=== PATIENT | male | born 1945 ===

== ENCOUNTER 2016-08-21 15:58 | Emergency (ER) | payer MEDICARE, MEDICAID ==
[2016-08-21 16:14] VITALS: BMI 23.0
[2016-08-21 16:18] VITALS: PULSE 71
--- NOTE | 2016-08-21 17:04 | ED PDOC ---
Arrival/HPI - General Historian: Patient - History of Present Illness Time/Duration: Other (3 months) Quality: Aching Context: Home - General Chief Complaint: Back Pain Time Seen by Provider: 08/21/16 17:00 - History of Present Illness Narrative History of Present Illness (Text): 08/21/16 17:01 This 70 yo male presents to this ED c/o right side neck pain x 3 months. Patient admits intermittent crepitus. Denies trauma, sob, abnormal gait, dizziness, vertigo, sob, cp, abdominal pain, pugh, or rash. (Rogelio Green) Past Medical History - Provider Review Nursing Documentation Reviewed: Yes - Cardiac Hx Cardiac Disorders: Yes Hx Hypertension: Yes - Pulmonary Hx Respiratory Disorders: No - Neurological Hx Neurological Disorder: No - HEENT Hx HEENT Disorder: No - Renal Hx Renal Disorder: No - Endocrine/Metabolic Hx Endocrine Disorders: No - Hematological/Oncological Hx Blood Disorders: Yes Hx Anemia: Yes Hx Blood Transfusions: Yes Hx Blood Transfusion Reaction: No Hx Cirrhosis: Yes Hx Hepatitis C: Yes - Integumentary Hx Dermatological Disorder: No - Musculoskeletal/Rheumatological Hx Musculoskeletal Disorders: Yes Hx Falls: Yes (fell yesterday in kitchen) Hx Unsteady Gait: Yes (weakness) - Gastrointestinal Hx Gastrointestinal Disorders: Yes (Peptic Ulcer Disease) Hx Liver Failure: Yes (cirrhosis) - Genitourinary/Gynecological Hx Genitourinary Disorders: No - Psychiatric Hx Psychophysiologic Disorder: No Hx Substance Use: No Other/Comment: etoh stopped drinking 04/2015 - Anesthesia Hx Anesthesia: Yes Hx Anesthesia Reactions: No Hx Malignant Hyperthermia: No Family/Social History - Physician Review Nursing Documentation Reviewed: Yes Family/Social History: No Known Family HX Smoking Status: Never Smoked Hx Alcohol Use: No (stopped drinking 04/2015) Hx Substance Use: No Allergies/Home Meds Allergies/Adverse Reactions: Allergies No Known Allergies Allergy (Verified 08/21/16 16:14) Review of Systems - Review of Systems Constitutional: Normal. absent: Fatigue, Weight Change Eyes: Normal ENT: Normal. absent: Sore Throat, Rhinorrhea Respiratory: Normal. absent: SOB, Cough Cardiovascular: Normal Gastrointestinal: Normal. absent: Abdominal Pain, Nausea, Vomiting Genitourinary Male: Normal Musculoskeletal: Neck Pain Skin: Normal Neurological: Normal. absent: Headache, Dizziness, Focal Weakness, Gait Changes , Speech Changes, Facial Droop, Disequilibrium, Seizure Endocrine: Normal Hemo/Lymphatic: Normal Psychiatric: Normal Physical Exam Temperature: Afebrile Blood Pressure: Normal Pulse: Regular Respiratory Rate: Normal Appearance: Positive for: Well-Appearing, Non-Toxic, Comfortable Pain Distress: None Mental Status: Positive for: Alert and Oriented X 3 - Systems Exam Head: Present: Atraumatic, Normocephalic Pupils: Present: PERRL Extroacular Muscles: Present: EOMI Conjunctiva: Present: Normal Mouth: Present: Moist Mucous Membranes Neck: Present: Normal Range of Motion Respiratory/Chest: Present: Clear to Auscultation, Good Air Exchange. No: Respiratory Distress, Accessory Muscle Use Cardiovascular: Present: Regular Rate and Rhythm, Normal S1, S2. No: Murmurs Abdomen: Present: Normal Bowel Sounds. No: Tenderness, Distention, Peritoneal Signs Back: Present: Normal Inspection. No: CVA Tenderness Upper Extremity: Present: Normal Inspection, Normal ROM, NORMAL PULSES, Neurovascularly Intact, Capillary Refill < 2s. No: Cyanosis, Edema Lower Extremity: Present: Normal Inspection, NORMAL PULSES, Normal ROM, Capillary Refill < 2 s. No: Edema Neurological: Present: GCS=15, CN II-XII Intact, Speech Normal Skin: Present: Warm, Dry, Normal Color. No: Rashes Psychiatric: Present: Alert, Oriented x 3 Medical Decision Making Re-evaluation Time: 18:03 Reassessment Condition: Re-examined, Improved ED Course and Treatment: 08/21/16 18:03 Re-evaluation. Patient feels better. Discussed results and plan with patient who expresses understanding. All questions answered and there is agreement with the plan to discharge home with instructions. Patient stable for discharge. Return if symptoms persist or worsen. Patient is aware of lung nodule,and to follow up pmd (Rogelio Green) - RAD Interpretation Narrative RAD Interpretations (Text): 08/21/16 18:02 Accession No. : [id number] Patient Name / ID : RUFINA SNYDER / [id number] Exam Date : 08/21/2016 17:15:33 ( Approved ) Study Comment : Sex / Age : M / 70Y Creator : Christiana Stewart MD Dictator : Christiana Stewart MD Vehicle Technician : Grinder Hardboard : Christiana Stewart MD Approver2 : Report Date : 08/21/2016 17:45:14 My Comment : CT cervical spine without IV contrast Indication: Pain Comparison: None available Technique: Axial computed tomography images were obtained of the cervical spine without the use of intravenous contrast. Coronal and sagittal reformatted images were created and reviewed. This CT exam was performed using 1 or more of the falling dose reduction techniques: Automated exposure control, adjustment of the MAA and/or kV according to patient size, and/or use of iterative reconstruction technique. Radiation dose: Total exam DLP = 481.28 mGy-cm. Findings: There is decreased mineralization of the bones, most likely representing osteoporosis. Several rounded lytic lesions are noted scattered throughout the cervical spine including C6 spinous process of unclear significance ; possibly related to degenerative state in osseous demineralization. Underlying metabolic bone disease or infiltrative lesions can also have this appearance. This decreases the sensitivity for detection of acute fracture lines, and if this is of clinical concern, MRI should be considered. Straightening of the normal cervical lordosis may be related to muscle spasm or positioning. There is no evidence of acute fracture. Approximately 2 mm retrolisthesis of C5 on C6. Multilevel degenerative changes including intervertebral disc space narrowing. Small osteophyte formation. Facet hypertrophy. The prevertebral soft tissues and spinolaminar lines appear intact. The lateral masses are preserved. The dens tip is intact. There is proper alignment of the lateral masses of C1 with the C2 vertebral body. Included portions of the thyroid gland appear unremarkable. Included portions of lung apices demonstrates 3 mm right upper lobe nodular density. Right apical atelectasis or scarring. Impression: Straightening of the normal cervical lordosis may be related to muscle spasm or positioning. No evidence of acute fracture. There is decreased mineralization of the bones, most likely representing osteoporosis. Several rounded lytic lesions are noted scattered throughout the cervical spine including C6 spinous process of unclear significance ; possibly related to degenerative state and osseous demineralization. Underlying metabolic bone disease or infiltrative lesions can also have this appearance. Recommend clinical correlation and further evaluation as indicated. Also, please note demineralized appearance decreases the sensitivity for detection of acute fracture lines, and if this is of clinical concern, MRI should be considered. Included portions of lung apices demonstrates 3 mm right upper lobe nodular density. Right apical atelectasis or scarring. (Rogelio Green) Radiology Orders: 08/21/16 17:00 CERVICAL SPINE W/O CONTRAST [CT] Stat - Medication Orders Current Medication Orders: Discontinued Medications Diazepam (Valium) 5 mg PO ONCE ONE PRN Reason: Protocol Stop: 08/21/16 17:40 Last Admin: 08/21/16 17:53 Dose: 5 mg Disposition/Present on Arrival - Present on Arrival Any Indicators Present on Arrival: No History of DVT/PE: No History of Uncontrolled Diabetes: No Urinary Catheter: No History of Decub. Ulcer: No History Surgical Site Infection Following: None - Disposition Have Diagnosis and Disposition been Completed?: Yes Disposition Time: 18:04 Patient Plan: Discharge - Disposition Diagnosis: Cervical pain (neck), Lung nodule seen on imaging study Disposition: HOME/ ROUTINE Condition: GOOD Discharge Instructions (ExitCare): Pulmonary Nodules (ED) Additional Instructions: Call private doctor tomorrow or in 2 days for revaluation. Take medication as instructed. Return to emergency if symptoms worsen. Prescriptions: diaZEpam [Valium] 5 mg PO DAILY #7 tab Referrals: Gulshan Sierra MD [Primary Care Provider] - Follow up with primary Addendum Addendum: 08/26/16 09:20 Unsure what is meant by "crepitus" but CT performed without any mention of air in report. Otherwise, agree with documentation. (Cyril Corea)
--- NOTE | 2016-08-21 17:46 | CT ---
CT cervical spine without IV contrast Indication: Pain Comparison: None available Technique: Axial computed tomography images were obtained of the cervical spine without the use of intravenous contrast. Coronal and sagittal reformatted images were created and reviewed. This CT exam was performed using 1 or more of the falling dose reduction techniques: Automated exposure control, adjustment of the MAA and/or kV according to patient size, and/or use of iterative reconstruction technique. Radiation dose: Total exam DLP = 481.28 mGy-cm. Findings: There is decreased mineralization of the bones, most likely representing osteoporosis. Several rounded lytic lesions are noted scattered throughout the cervical spine including C6 spinous process of unclear significance ; possibly related to degenerative state in osseous demineralization. Underlying metabolic bone disease or infiltrative lesions can also have this appearance. This decreases the sensitivity for detection of acute fracture lines, and if this is of clinical concern, MRI should be considered. Straightening of the normal cervical lordosis may be related to muscle spasm or positioning. There is no evidence of acute fracture. Approximately 2 mm retrolisthesis of C5 on C6. Multilevel degenerative changes including intervertebral disc space narrowing. Small osteophyte formation. Facet hypertrophy. The prevertebral soft tissues and spinolaminar lines appear intact. The lateral masses are preserved. The dens tip is intact. There is proper alignment of the lateral masses of C1 with the C2 vertebral body. Included portions of the thyroid gland appear unremarkable. Included portions of lung apices demonstrates 3 mm right upper lobe nodular density. Right apical atelectasis or scarring. Impression: Straightening of the normal cervical lordosis may be related to muscle spasm or positioning. No evidence of acute fracture. There is decreased mineralization of the bones, most likely representing osteoporosis. Several rounded lytic lesions are noted scattered throughout the cervical spine including C6 spinous process of unclear significance ; possibly related to degenerative state and osseous demineralization. Underlying metabolic bone disease or infiltrative lesions can also have this appearance. Recommend clinical correlation and further evaluation as indicated. Also, please note demineralized appearance decreases the sensitivity for detection of acute fracture lines, and if this is of clinical concern, MRI should be considered. Included portions of lung apices demonstrates 3 mm right upper lobe nodular density. Right apical atelectasis or scarring.
[2016-08-21 18:28] VITALS: BP 109/71; RESP 20; TEMP 97.6; O2SAT 96
== END 2016-08-21 18:29 | disposition home or self-care (01) ==
LOC: ED 15:58
DX: M54.2 Cervicalgia (principal); R91.1 Solitary pulmonary nodule; I10 Essential (primary) hypertension

== ENCOUNTER 2017-01-11 20:49 | Inpatient (IN) | payer MEDICARE, MEDICAID ==
[2017-01-11 20:50] VITALS: BMI 23.0
--- NOTE | 2017-01-11 21:11 | ED PDOC ---
Arrival/HPI - General Chief Complaint: GI Problem Time Seen by Provider: 01/11/17 20:52 Historian: Patient - History of Present Illness Narrative History of Present Illness (Text): 01/11/17 21:10 Ras Wahl is a 71 year old male, whose past medical history include liver cirrhosis, hypertension, peptic ulcer disease, and alcohol abuse, who presents to the Emergency department accompanied by family complaining of hematemesis. Daughter states patient had 1 episodes of hematemesis at home tonight with associated burning abdominal discomfort. Patient also complaining of dry mouth. Patient denies any fever, chills, chest pain, shortness of breath, diarrhea, urinary symptoms, back pain, neck pain, headache, dizziness, or any other complaints. PMD: Dr. Sierra GI: Dr. Bryant Key Time/Duration: Other (today) Symptom Onset: Gradual Symptom Course: Unchanged Activities at Onset: Light Context: Home Past Medical History - Provider Review Nursing Documentation Reviewed: Yes - Infectious Disease Hx of Infectious Diseases: None - Cardiac Hx Cardiac Disorders: Yes Hx Hypertension: Yes - Pulmonary Hx Respiratory Disorders: No - Neurological Hx Neurological Disorder: No - HEENT Hx HEENT Disorder: No - Renal Hx Renal Disorder: No - Endocrine/Metabolic Hx Endocrine Disorders: No - Hematological/Oncological Hx Blood Disorders: Yes Hx Anemia: Yes Hx Blood Transfusions: Yes Hx Blood Transfusion Reaction: No Hx Cirrhosis: Yes Hx Hepatitis C: Yes - Integumentary Hx Dermatological Disorder: No - Musculoskeletal/Rheumatological Hx Musculoskeletal Disorders: Yes Hx Falls: Yes (fell yesterday in kitchen) Hx Unsteady Gait: Yes (weakness) - Gastrointestinal Hx Gastrointestinal Disorders: Yes (Peptic Ulcer Disease) Hx Liver Failure: Yes (cirrhosis) - Genitourinary/Gynecological Hx Genitourinary Disorders: No - Psychiatric Hx Psychophysiologic Disorder: No Hx Substance Use: No Other/Comment: etoh stopped drinking 04/2015 - Anesthesia Hx Anesthesia: Yes Hx Anesthesia Reactions: No Hx Malignant Hyperthermia: No Family/Social History - Physician Review Nursing Documentation Reviewed: Yes Family/Social History: Unknown Family HX Smoking Status: Never Smoked Hx Alcohol Use: No (stopped drinking 04/2015) Hx Substance Use: No Allergies/Home Meds Allergies/Adverse Reactions: Allergies No Known Allergies Allergy (Verified 01/11/17 20:57) Review of Systems - Physician Review All systems were reviewed & negative as marked: Yes - Review of Systems Constitutional: Normal. absent: Fevers Eyes: Normal ENT: Normal Respiratory: Normal. absent: SOB, Cough Cardiovascular: Normal. absent: Chest Pain Gastrointestinal: Abdominal Pain, Nausea, Vomiting. absent: Diarrhea Genitourinary Male: Normal. absent: Dysuria, Frequency, Hematuria, Urinary Output Changes Musculoskeletal: Normal. absent: Back Pain, Neck Pain Skin: Normal. absent: Rash Neurological: Normal. absent: Headache, Dizziness Endocrine: Normal Hemo/Lymphatic: Normal Psychiatric: Normal Physical Exam Vital Signs Reviewed: Yes Vital Signs Temp Pulse Resp BP Pulse Ox 01/11/17 20:53 98 F 98 H 20 101/65 94 L Temperature: Afebrile Blood Pressure: Normal Pulse: Regular Respiratory Rate: Normal Appearance: Positive for: Well-Appearing, Non-Toxic, Comfortable Pain Distress: None Mental Status: Positive for: Alert and Oriented X 3 - Systems Exam Head: Present: Atraumatic, Normocephalic Pupils: Present: PERRL Extroacular Muscles: Present: EOMI Conjunctiva: Present: Normal Mouth: Present: Moist Mucous Membranes Neck: Present: Normal Range of Motion Respiratory/Chest: Present: Clear to Auscultation, Good Air Exchange. No: Respiratory Distress, Accessory Muscle Use Cardiovascular: Present: Regular Rate and Rhythm, Normal S1, S2. No: Murmurs Abdomen: Present: Normal Bowel Sounds. No: Tenderness, Distention, Peritoneal Signs Back: Present: Normal Inspection Upper Extremity: Present: Normal Inspection. No: Cyanosis, Edema Lower Extremity: Present: Normal Inspection. No: Edema Neurological: Present: GCS=15, CN II-XII Intact, Speech Normal Skin: Present: Warm, Dry, Normal Color. No: Rashes Psychiatric: Present: Alert, Oriented x 3, Normal Insight, Normal Concentration Medical Decision Making ED Course and Treatment: 01/11/17 21:10 Impression: 71 year old male complaining of hematemesis and burning abdominal discomfort tonight. Differential Diagnosis included but are not limited to: GI bleed Plan: -- EKG -- Chest X-ray -- Labs, cardiac enzymes, alcohol level, lipase, blood type and screen -- IV fluids -- Protonix -- Reassess and disposition Prior Visits: Notes and results from previous visits were reviewed. On 08/21/2016, pt presented for right sided neck pain. Pt was d/c home on [facility]. Progress Notes: 01/11/17 21:33 Reviewed EKG, NSR at 90 bpm. Non-specific T wave changes. 01/11/17 21:37 Reviewed radiology, Chest X-ray shows no acute processes. 01/11/17 22:[address] Sierra, who requests pt go to hospitalist service. 01/11/17 22:42 Case discussed with medical doctor md vocational rehabilitation consultant, who is aware and agrees with plan. 01/11/17 22:[address] Jackson, who is aware and agrees with plan. Accepts pt in to hospitalist service. Pt will go to [facility] observation for GI bleed. - Lab Interpretations Lab Results: 01/11/17 21:20 01/11/17 21:20 Lab Results 01/11/17 21:20: PT 14.0 H, INR 1.30 H, APTT 36.2 H 01/11/17 21:20: WBC 2.9 L* D, RBC 3.43 L, Hgb 10.9 L, Hct 31.1 L, MCV 90.7, MCH 31.8, MCHC 35.0, RDW 14.2, Plt Count 48 L*, MPV 9.1, Gran % 59.6, Lymph % (Auto ) 25.2, [place] % (Auto) 14.9 H, Eos % (Auto) 0.3 L, Baso % (Auto) 0.0, Gran # 1.84 , Lymph # 0.8 L, [place] # 0.5, Eos # 0.0, Baso # 0.01 01/11/17 21:20: Alcohol, Quantitative < 10 01/11/17 21:20: Sodium 134, Potassium 4.1, Chloride 99, Carbon Dioxide 27, Anion Gap 12, BUN 15, Creatinine 0.6 L, Est GFR ( Amer) > 60, Est GFR ( Non-Af Amer) > 60, Random Glucose 130 H, Calcium 7.8 L, Total Bilirubin 3.1 H, AST 117 H, ALT 55, Alkaline Phosphatase 156 H, Lactate Dehydrogenase 870 H, Total Creatine Kinase 128, Troponin I < 0.01, Total Protein 6.9, Albumin 3.2, Globulin 3.7, Albumin/Globulin Ratio 0.9 L, Lipase 201 I have reviewed the lab results: Yes - RAD Interpretation Radiology Orders: 01/11/17 21:12 CHEST PORTABLE [RAD] Stat Waiter Waitress: ED Physician - EKG Interpretation Interpreted by ED Physician: Yes Type: 12 lead EKG - Medication Orders Current Medication Orders: Sodium Chloride (Sodium Chloride 0.9%) 1,000 mls @ 100 mls/hr IV .Q10H JOSS Last Admin: 01/11/17 21:50 Dose: 100 mls/hr eMAR Start Stop Document 01/11/17 21:50 SS (Rec: 01/11/17 21:51 SS [id number]) Intravenous Solution Start Date 01/11/17 Start Time 21:51 Discontinued Medications Pantoprazole Sodium (Protonix Inj) 40 mg IVP ONCE STA Stop: 01/11/17 21:14 Last Admin: 01/11/17 21:51 Dose: 40 mg IVP Administration Document 01/11/17 21:51 SS (Rec: 01/11/17 21:51 SS [id number]) Charges for Administration # of IVP Administrations 1 - Scribe Statement The provider has reviewed the documentation as recorded by the Paras Alexander Provider Scribe Attestation: All medical record entries made by the Walteribdenise were at my direction and personally dictated by me. I have reviewed the chart and agree that the record accurately reflects my personal performance of the history, physical exam, medical decision making, and the department course for this patient. I have also personally directed, reviewed, and agree with the discharge instructions and disposition. Disposition/Present on Arrival - Present on Arrival Any Indicators Present on Arrival: No History of DVT/PE: No History of Uncontrolled Diabetes: No Urinary Catheter: No History of Decub. Ulcer: No History Surgical Site Infection Following: None - Disposition Have Diagnosis and Disposition been Completed?: Yes Diagnosis: Hematemesis/vomiting blood Disposition: HOSPITALIZED Disposition Time: 23:10 Patient Plan: Observation Condition: STABLE Referrals: Gulshan Sierra MD [Primary Care Provider] - Follow up with primary Forms: [employer] (Malawian)
[2017-01-11 21:31] LABS: HEMATOCRIT 31.1 % (42.0-52.0); MEAN CELL VOLUME 90.7 fl (80.0-105.0); MEAN CORPUSCULAR HEMOGLOBIN 31.8 pg (25.0-35.0); MEAN PLATELET VOLUME 9.1 fl (7.0-11.0); RED CELL DISTRIBUTION WIDTH 14.2 % (11.5-14.5)
[2017-01-11 21:35] LABS: WHITE BLOOD COUNT 2.9 10^3/ul (4.5-11.0)
[2017-01-11 21:41] LABS: ALB/GLOB RATIO 0.9 (1.1-1.8); ALKALINE PHOSPHATASE 156 U/L (38-126); ALT/SGPT 55 U/L (7-56); AST/SGOT 117 U/L (17-59); BILIRUBIN,TOTAL 3.1 mg/dL (0.2-1.3); BLOOD UREA NITROGEN 15 mg/dL (7-21); CALCIUM 7.8 mg/dL (8.4-10.5); CARBON DIOXIDE 27 mmol/L (21-33); CHLORIDE 99 mmol/L (98-107); GFR AFRICAN-AMERICAN > 60; GLUCOSE,RANDOM 130 mg/dL (70-110); LIPASE 201 U/L (23-300); POTASSIUM 4.1 mmol/L (3.6-5.0); SODIUM 134 mmol/L (132-148); TOTAL PROTEIN 6.9 g/dL (5.8-8.3)
[2017-01-11 21:42] LABS: BASO # 0.01 K/mm3 (0.0-2.0); EOS % 0.3 % (1.5-5.0); GRAN # 1.84 (1.4-6.5); GRAN % 59.6 % (50.0-68.0); LYMPH # 0.8 (1.2-3.4); LYMPH % 25.2 % (22.0-35.0); MONO # 0.5 (0.1-0.6); MONO % 14.9 % (1.0-6.0)
[2017-01-11 21:45] LABS: INR 1.3 (0.93-1.08); PARTIAL THROMBOPLASTIN TIME 36.2 Seconds (23.7-30.8)
[2017-01-11] MEDS: Sodium Chloride 0.9% 1,000 ML IV SCH (21:50)
[2017-01-11 21:53] LABS: TROPONIN I < 0.01 ng/mL
--- NOTE | 2017-01-12 01:05 | CP.PCM.HP ---
Addendum entered and electronically signed by Girish Rust DO 01/12/17 06:22 : Plan - DVT/GI prophylaxis - SCDs/Protonix Original Note: <Girish Rust - Last Filed: 01/12/17 06:18> History of Present Illness - History of Present Illness History of Present Illness: Chief Complaint Hematemesis HPI Patient is a 71 year old male with a past medical history of bleeding PUD which required parecentesis and intubation who presents to [facility] on 01/11/17 with complaints of an episode of bloody vomit. Patient was admitted 02/21 for a bleeding ulcer and since then was placed on nexium. After some months patient was given permission by his PMD to take as needed. Patient stopped both nexium and PPI and was feeling fine until a few days ago when he began to have heart burn and abdominal pain. The abdominal pain did not have any exacerbating or relieving factors. With the pain being very prominent today patient decided to induce vomiting; bloody vomit resulted. Patient's daughter states she was going to take her father to see his PMD on Friday but with today's episode of bloody vomit decided to come to the ED today. Patient admits to experiencing an episode of fever for which he took tylenol. Patient denies nausea, diarrhea, chills, shortness of breath, headache. PMD: Dr. Sierra Manager Of Transportation: Dr. Ospina Social history: denies smoking, alcohol consumption, illicit drug abuse Family history: father (Cancer doesn't recall) Allergies: NKDA Present on Admission - Present on Admission Any Indicators Present on Admission: No Review of Systems - Constitutional Constitutional: Fever. absent: Chills, Headache - EENT Eyes: absent: Blurred Vision, Change in Vision Ears: absent: Ear Discharge, Ear Pain Nose/Mouth/Throat: absent: Nasal Congestion, Nasal Discharge - Cardiovascular Cardiovascular: absent: Chest Pain, Dyspnea - Respiratory Respiratory: absent: Cough, Dyspnea - Gastrointestinal Gastrointestinal: Abdominal Pain, Dyspepsia, Hematemesis, Vomiting. absent: Diarrhea, Nausea - Genitourinary Genitourinary: absent: Difficulty Urinating, Dysuria - Neurological Neurological: absent: Abnormal Hearing, Abnormal Movements - Psychiatric Psychiatric: absent: Anxiety, Change in Appetite Past Patient History - Infectious Disease Hx of Infectious Diseases: None - Past Medical History & Family History Past Medical History?: Yes - Past Social History Smoking Status: Never Smoked - CARDIAC Hx Cardiac Disorders: Yes Hx Hypertension: Yes - PULMONARY Hx Respiratory Disorders: No - NEUROLOGICAL Hx Neurological Disorder: No - HEENT Hx HEENT Problems: No - RENAL Hx Chronic Kidney Disease: No - ENDOCRINE/METABOLIC Hx Endocrine Disorders: No - HEMATOLOGICAL/ONCOLOGICAL Hx Blood Disorders: Yes Hx Anemia: Yes Hx Blood Transfusions: Yes Hx Blood Transfusion Reaction: No Hx Cirrhosis: Yes Hx Hepatitis C: Yes - INTEGUMENTARY Hx Dermatological Problems: No - MUSCULOSKELETAL/RHEUMATOLOGICAL Hx Musculoskeletal Disorders: Yes Hx Falls: Yes (fell yesterday in kitchen) Hx Unsteady Gait: Yes (weakness) - GASTROINTESTINAL Hx Gastrointestinal Disorders: Yes (Peptic Ulcer Disease) Hx Liver Failure: Yes (cirrhosis) - GENITOURINARY/GYNECOLOGICAL Hx Genitourinary Disorders: No - PSYCHIATRIC Hx Psychophysiologic Disorder: No Hx Substance Use: No Other/Comment: etoh stopped drinking 04/2015 - SURGICAL HISTORY Hx Surgeries: Yes (paracentesis) - ANESTHESIA Hx Anesthesia: Yes Hx Anesthesia Reactions: No Hx Malignant Hyperthermia: No Meds Allergies/Adverse Reactions: Allergies Allergy/AdvReac Type Severity Reaction Status Date / Time No Known Allergies Allergy Verified 01/11/17 20:57 Physical Exam - Head Exam Head Exam: ATRAUMATIC, NORMAL INSPECTION, NORMOCEPHALIC - Eye Exam Eye Exam: EOMI, Normal appearance Pupil Exam: NORMAL ACCOMODATION - ENT Exam ENT Exam: Mucous Membranes Moist, Normal Exam - Neck Exam Neck exam: Positive for: Normal Inspection - Respiratory Exam Respiratory Exam: Clear to Auscultation Bilateral, NORMAL BREATHING PATTERN. absent: Rhonchi, Wheezes - Cardiovascular Exam Cardiovascular Exam: REGULAR RHYTHM, +S1, +S2 - GI/Abdominal Exam GI & Abdominal Exam: Normal Bowel Sounds, Soft. absent: Distended, Firm, Tenderness - Extremities Exam Extremities exam: Positive for: normal inspection. Negative for: calf tenderness - Back Exam Back exam: NORMAL INSPECTION. absent: CVA tenderness (L) - Neurological Exam Neurological exam: Alert, CN II-XII Intact, Oriented x3 - Psychiatric Exam Psychiatric exam: Normal Affect, Normal Mood - Skin Skin Exam: Normal Color, Warm Results - Vital Signs Recent Vital Signs: Last Vital Signs Temp 98 F 01/11/17 20:53 Pulse 98 H 01/11/17 20:53 Resp 20 01/11/17 20:53 BP 101/65 01/11/17 20:53 Pulse Ox 94 L 01/11/17 20:53 - Labs Result Diagrams: 01/11/17 21:20 01/11/17 21:20 Assessment & Plan - Assessment and Plan (Free Text) Assessment: Assessment 71 year old male past medical history of bleeding ulcer presenting with hematemesis Plan: Plan 1. Hematemesis - GI consult; recs appreciated - Continue to monitor H&H - IV protonix - NPO <Elsa Jackson - Last Filed: 01/12/17 18:47> Results - Vital Signs Recent Vital Signs: Last Vital Signs Temp 97.8 F 01/12/17 16:37 Pulse 60 01/12/17 18:34 Resp 20 01/12/17 16:37 BP 170/80 H 01/12/17 18:34 Pulse Ox 96 01/12/17 16:37 - Labs Result Diagrams: 01/12/17 07:00 01/12/17 07:00 Labs: Laboratory Results - last 24 hr 01/12/17 01/12/17 01/12/17 07:00 07:00 10:17 WBC 3.6 L D RBC 3.30 L Hgb 10.0 L Hct 29.7 L MCV 90.0 MCH 30.3 MCHC 33.7 RDW 14.0 Plt Count 43 L* Manual Plt Count 55 L* MPV 9.4 Gran % 50.9 Lymph % (Auto) 32.0 [place] % (Auto) 16.3 H Eos % (Auto) 0.0 L Baso % (Auto) 0.8 Gran # 1.85 Lymph # 1.2 [place] # 0.6 Eos # 0.0 Baso # 0.03 Sodium 135 Potassium 4.3 Chloride 101 Carbon Dioxide 29 Anion Gap 9 L BUN 16 Creatinine 0.5 L Est GFR ( Amer) > 60 Est GFR (Non-Af Amer) > 60 Random Glucose 104 Calcium 7.4 L Phosphorus 2.6 Magnesium 1.4 L Total Bilirubin 2.8 H AST 113 H ALT 51 Alkaline Phosphatase 145 H Total Protein 6.4 Albumin 2.9 L Globulin 3.5 Albumin/Globulin Ratio 0.8 L Attending/Attestation - Attestation I have personally seen and examined this patient.: Yes I have fully participated in the care of the patient.: Yes I have reviewed all pertinent clinical information: Yes Notes (Text): 01/12/17 18:46 Agree with history , physical examination, assessment and plan.
[2017-01-12 07:25] LABS: BASO # 0.03 K/mm3 (0.0-2.0); BASO % 0.8 % (0.0-3.0); GRAN # 1.85 (1.4-6.5); GRAN % 50.9 % (50.0-68.0); HEMATOCRIT 29.7 % (42.0-52.0); LYMPH # 1.2 (1.2-3.4); MEAN CORPUSCULAR HEMOGLOBIN 30.3 pg (25.0-35.0); MEAN CORPUSCULAR HGB CONC 33.7 g/dl (31.0-37.0); MEAN PLATELET VOLUME 9.4 fl (7.0-11.0); MONO # 0.6 (0.1-0.6); MONO % 16.3 % (1.0-6.0); WHITE BLOOD COUNT 3.6 10^3/ul (4.5-11.0)
[2017-01-12 07:49] LABS: ALB/GLOB RATIO 0.8 (1.1-1.8); ALKALINE PHOSPHATASE 145 U/L (38-126); ALT/SGPT 51 U/L (7-56); AST/SGOT 113 U/L (17-59); BILIRUBIN,TOTAL 2.8 mg/dL (0.2-1.3); BLOOD UREA NITROGEN 16 mg/dL (7-21); CALCIUM 7.4 mg/dL (8.4-10.5); CARBON DIOXIDE 29 mmol/L (21-33); CHLORIDE 101 mmol/L (98-107); GFR AFRICAN-AMERICAN > 60; GLUCOSE,RANDOM 104 mg/dL (70-110); MAGNESIUM 1.4 mg/dL (1.7-2.2); PHOSPHOROUS 2.6 mg/dL (2.5-4.5); POTASSIUM 4.3 mmol/L (3.6-5.0); SODIUM 135 mmol/L (132-148); TOTAL PROTEIN 6.4 g/dL (5.8-8.3)
--- NOTE | 2017-01-12 08:26 | CP.PCM.CON ---
History of Present Illness - History of Present Illness History of Present Illness: Asked by hospitalist team for a GI consultation on this patient. 71 year old male with history of decompensated ETOH cirrhosis, peptic ulcer disease who presents to hospital with complaint of hematemesis yesterday. Prior to this he was in usual state of health. He denies abdominal pain, nausea, fever/chills, weight loss, rectal bleeding, or change in bowel habits. According to patient he has not consumed ETOH since April 2015 and is compliant with outpatient medication regimen, though he is not able to recall which medication he is on. He had an EGD/colonoscopy in March 2016 which showed grade I esophageal varices and rectal varices. Social history: non-smoker, no ETOH use Family history: patient denies history of colon cancer Review of Systems - Review of Systems Review of Systems: - All other comprehensive 12 point review of systems performed, negative - Cardiovascular Cardiovascular: absent: Acrocyanosis, Chest Pain, Chest Pain at Rest, Chest Pain with Activity, Claudication, Diaphoresis, Dyspnea, Dyspnea on Exertion, Edema, Irregular Heart Rhythm, Pain Radiating to Arm/Neck/Jaw, Leg Edema, Leg Ulcers, Lightheadedness, Orthopnea, Palpitations, Paroxysmal Nocturnal Dyspnea, Pedal Edema, Radiating Pain, Rapid Heart Rate, Slow Heart Rate, Syncope, Other - Respiratory Respiratory: absent: Cough, Dyspnea, Hemoptysis, Dyspnea on Exertion, Wheezing, Snoring, Stridor, Pain on Inspiration, Chest Congestion, Excessive Mucous Production, Change in Mucous Color, Pain with Coughing, Other - Gastrointestinal Gastrointestinal: Hematemesis - Musculoskeletal Musculoskeletal: absent: Abnormal Gait, Arthralgias, Atrophy, Back Pain, Deformity, Joint Swelling, Limited Range of Motion, Loss of Height, Muscle Cramps, Muscle Weakness, Myalgias, Neck Pain, Numbness, Radiating Pain into Limb , Stiffness, Tingling, Other - Neurological Neurological: absent: Abnormal Gait, Abnormal Hearing, Abnormal Movements, Abnormal Speech, Behavioral Changes, Burning Sensations, Confusion, Convulsions , Disequilibrium, Dizziness, Numbness, Focal Weakness, Frequent Falls, Headaches , Lack of Coordination, Loss of Vision, Memory Loss, Paresthesias, Radicular Pain, Restless Legs, Sensory Deficit, Syncope, Tingling, Tremor, Vertigo, Weakness, Other Visual Disturbances, Other Past Patient History - Infectious Disease Hx of Infectious Diseases: None - Past Medical History & Family History Past Medical History?: Yes - Past Social History Smoking Status: Never Smoked - CARDIAC Hx Cardiac Disorders: Yes Hx Hypertension: Yes - PULMONARY Hx Respiratory Disorders: No - NEUROLOGICAL Hx Neurological Disorder: No - HEENT Hx HEENT Problems: No - RENAL Hx Chronic Kidney Disease: No - ENDOCRINE/METABOLIC Hx Endocrine Disorders: No - HEMATOLOGICAL/ONCOLOGICAL Hx Blood Disorders: Yes Hx Anemia: Yes Hx Blood Transfusions: Yes Hx Blood Transfusion Reaction: No Hx Cirrhosis: Yes Hx Hepatitis C: Yes - INTEGUMENTARY Hx Dermatological Problems: No - MUSCULOSKELETAL/RHEUMATOLOGICAL Hx Musculoskeletal Disorders: Yes Hx Falls: Yes (fell yesterday in kitchen) Hx Unsteady Gait: Yes (weakness) - GASTROINTESTINAL Hx Gastrointestinal Disorders: Yes (Peptic Ulcer Disease) Hx Liver Failure: Yes (cirrhosis) - GENITOURINARY/GYNECOLOGICAL Hx Genitourinary Disorders: No - PSYCHIATRIC Hx Psychophysiologic Disorder: No Hx Substance Use: No Other/Comment: etoh stopped drinking 04/2015 - SURGICAL HISTORY Hx Surgeries: Yes (paracentesis) - ANESTHESIA Hx Anesthesia: Yes Hx Anesthesia Reactions: No Hx Malignant Hyperthermia: No Meds Allergies/Adverse Reactions: Allergies Allergy/AdvReac Type Severity Reaction Status Date / Time No Known Allergies Allergy Verified 01/11/17 20:57 - Medications Medications: Current Medications Sodium Chloride (Sodium Chloride 0.9%) 1,000 mls @ 100 mls/hr IV .Q10H JOSS Last Admin: 01/11/17 21:50 Dose: 100 mls/hr Physical Exam - Constitutional Appears: Non-toxic, No Acute Distress - Head Exam Head Exam: NORMAL INSPECTION - Eye Exam Eye Exam: EOMI, Normal appearance - ENT Exam ENT Exam: Mucous Membranes Moist - Respiratory Exam Respiratory Exam: Clear to Auscultation Bilateral - Cardiovascular Exam Cardiovascular Exam: REGULAR RHYTHM, +S1, +S2 - GI/Abdominal Exam GI & Abdominal Exam: Normal Bowel Sounds, Soft Additional comments: non tender to palpation in four quadrants no palpable hepato/splenomegaly - Extremities Exam Extremities exam: Positive for: normal inspection - Neurological Exam Neurological exam: Alert, CN II-XII Intact, Oriented x3, Reflexes Normal - Psychiatric Exam Psychiatric exam: Normal Affect, Normal Mood - Skin Skin Exam: Dry, Intact, Normal Color, Warm Results - Vital Signs Recent Vital Signs: Last Vital Signs Temp 98.4 F 01/12/17 01:39 Pulse 87 01/12/17 01:39 Resp 20 01/12/17 01:39 BP 121/78 01/12/17 01:39 Pulse Ox 94 L 01/11/17 20:53 - Labs Result Diagrams: 01/12/17 07:00 01/12/17 07:00 Labs: Laboratory Results - last 24 hr 01/12/17 01/12/17 07:00 07:00 WBC 3.6 L D RBC 3.30 L Hgb 10.0 L Hct 29.7 L MCV 90.0 MCH 30.3 MCHC 33.7 RDW 14.0 Plt Count 43 L* MPV 9.4 Gran % 50.9 Lymph % (Auto) 32.0 [place] % (Auto) 16.3 H Eos % (Auto) 0.0 L Baso % (Auto) 0.8 Gran # 1.85 Lymph # 1.2 [place] # 0.6 Eos # 0.0 Baso # 0.03 Sodium 135 Potassium 4.3 Chloride 101 Carbon Dioxide 29 Anion Gap 9 L BUN 16 Creatinine 0.5 L Est GFR ( Amer) > 60 Est GFR (Non-Af Amer) > 60 Random Glucose 104 Calcium 7.4 L Phosphorus 2.6 Magnesium 1.4 L Total Bilirubin 2.8 H AST 113 H ALT 51 Alkaline Phosphatase 145 H Total Protein 6.4 Albumin 2.9 L Globulin 3.5 Albumin/Globulin Ratio 0.8 L Assessment & Plan - Assessment and Plan (Free Text) Assessment: Decompensated ETOH cirrhosis - admission MELD 15 Hematemesis Prior history of PUD, esophageal varices Plan: - H/H stable, continue to monitor - Continue with PPI therapy - Anti-emetic therapy PRN - Liver CT from August 2016 reviewed by me showing cirrhosis without focal liver lesion - Patient currently hemodynamically stable, though given presentation with hematemesis and prior history of PUD and varices, will plan for EGD evaluation tomorrow pending patient clinical progress. NPO after midnight.
[2017-01-12] MEDS: cefTRIAXone 1 gm 1 GM/100 ML BAG IVPB SCH (09:30)
[2017-01-12] MEDS ORDERED: Magnesium Sulfate 2 GM in Sodium Chloride 0.9% 100 ML IVPB ONE (10:17)
--- NOTE | 2017-01-12 10:54 | RAD ---
HISTORY: Hematemesis. Technique: Single view portable semi erect @ 21:30. COMPARISON: 02/11/2016 FINDINGS: LUNGS: No active pulmonary disease. PLEURA: No significant pleural effusion identified, no pneumothorax apparent. CARDIOVASCULAR: No radiographic findings to suggest acute or significant cardiovascular disease. OSSEOUS STRUCTURES: No significant abnormalities. VISUALIZED UPPER ABDOMEN: Normal. OTHER FINDINGS: None. IMPRESSION: No active disease. Please note: No preliminary report/ innterpretation of this examination provided by emergency department personnel.
[2017-01-12] MEDS: Sodium Chloride 0.9% 1,000 ML IV SCH (16:51)
--- NOTE | 2017-01-12 19:45 | CARD ---
APPROVED REPORT EKG Measurement Heart [id number] OR [id number] <Conclusion> Normal sinus rhythm Nonspecific T wave abnormality Abnormal ECG
[2017-01-13] MEDS: Sodium Chloride 0.9% 1,000 ML IV SCH (03:48)
[2017-01-13 07:09] LABS: HEMATOCRIT 28.4 % (42.0-52.0); MEAN CELL VOLUME 89.3 fl (80.0-105.0); MEAN CORPUSCULAR HEMOGLOBIN 31.1 pg (25.0-35.0); MEAN CORPUSCULAR HGB CONC 34.9 g/dl (31.0-37.0); RED CELL DISTRIBUTION WIDTH 14.1 % (11.5-14.5); WHITE BLOOD COUNT 4.2 10^3/ul (4.5-11.0)
[2017-01-13 07:18] LABS: INR 1.24 (0.93-1.08)
[2017-01-13 07:30] LABS: ALB/GLOB RATIO 0.8 (1.1-1.8); ALKALINE PHOSPHATASE 155 U/L (38-126); ALT/SGPT 52 U/L (7-56); AST/SGOT 113 U/L (17-59); BILIRUBIN,TOTAL 3.5 mg/dL (0.2-1.3); BLOOD UREA NITROGEN 10 mg/dL (7-21); CALCIUM 7.5 mg/dL (8.4-10.5); CARBON DIOXIDE 25 mmol/L (21-33); CHLORIDE 102 mmol/L (98-107); GFR AFRICAN-AMERICAN > 60; GLUCOSE,RANDOM 97 mg/dL (70-110); POTASSIUM 3.9 mmol/L (3.6-5.0); SODIUM 134 mmol/L (132-148); TOTAL PROTEIN 6.4 g/dL (5.8-8.3)
[2017-01-13] MEDS ORDERED: Propofol 10 mg/ml Inj (20 ML) ONE ×2 (09:38→09:57)
[2017-01-13] MEDS ORDERED: Midazolam 2 MG/2 ML VIAL ONE (09:38)
[2017-01-13] MEDS: cefTRIAXone 1 gm 1 GM/100 ML BAG IVPB SCH (10:11)
[2017-01-13] MEDS ORDERED: Sodium Chloride 0.9% 1,000 ML IV SCH (10:30)
--- NOTE | 2017-01-13 11:35 | CP.PCM.PN ---
<Morgan Guajardo - Last Filed: 01/13/17 14:47> Subjective - Date & Time of Evaluation Date of Evaluation: 01/13/17 Time of Evaluation: 11:10 - Subjective Subjective: Subjective: Patient seen and examined at bedside. Resting comfortably in bed. No acute overnight events. Patient states nausea and vomitting have resolved and his abdominal pain is improved relative to baseline. Offers no new complaints at this time. Denies f/c/cp/sob/d/c/urinary sxs Physical Examination: - Head Exam Head Exam: ATRAUMATIC, NORMAL INSPECTION, NORMOCEPHALIC - Eye Exam Eye Exam: EOMI, Normal appearance Pupil Exam: NORMAL ACCOMODATION - ENT Exam ENT Exam: Mucous Membranes Moist, Normal Exam - Neck Exam Neck exam: Positive for: Normal Inspection - Respiratory Exam Respiratory Exam: Clear to Auscultation Bilateral, NORMAL BREATHING PATTERN. absent: Rhonchi, Wheezes - Cardiovascular Exam Cardiovascular Exam: REGULAR RHYTHM, +S1, +S2 - GI/Abdominal Exam GI & Abdominal Exam: Normal Bowel Sounds, Soft. absent: Distended, Firm, Tenderness - Extremities Exam Extremities exam: Positive for: normal inspection. Negative for: calf tenderness - Back Exam Back exam: NORMAL INSPECTION. absent: CVA tenderness (L) - Neurological Exam Neurological exam: Alert, CN II-XII Intact, Oriented x3 - Psychiatric Exam Psychiatric exam: Normal Affect, Normal Mood - Skin Skin Exam: Normal Color, Warm Assessment and Plan: Patient is a 71 year old male with a past medical history of PUD, ETOH induced cirrhosis, and esophageal varcies who was admitted for evaluation and treatment of bright red blood in the emesis. Hematemesis - NPO - IVF - c/w propanolol - consider d/c ceftriaxone - GI c/s recommendations appreciated- underwent EGD today with banding of multiple varices- will keep NPO and advanced to clears tomorrow Prophylaxis - Protonix - SCDs Patient case discussed with and plan approved by attending physician, Dr. Pina. Objective - Vital Signs/Intake and Output Vital Signs (last 24 hours): Temp Pulse Resp BP Pulse Ox 98.7 F 86 19 124/80 97 01/13/17 10:56 01/13/17 10:56 01/13/17 10:56 01/13/17 10:56 01/13/17 10:56 - Medications Medications: Current Medications Ceftriaxone Sodium (Rocephin 1 Gram Ivpb) 1 gm in 100 mls @ 100 mls/hr IVPB DAILY JOSS PRN Reason: Protocol Last Admin: 01/13/17 10:11 Dose: Not Given Sodium Chloride (Sodium Chloride 0.9%) 1,000 mls @ 100 mls/hr IV .Q10H JOSS Ondansetron HCl (Zofran Inj) 4 mg IVP Q6H JOSS Pantoprazole Sodium (Protonix Inj) 40 mg IVP Q12 JOSS Last Admin: 01/13/17 10:10 Dose: Not Given Propranolol HCl (Inderal) 10 mg PO BID JOSS Last Admin: 01/13/17 10:03 Dose: Not Given - Labs Labs: PT 13.4 Seconds (9.9-11.8) H 01/13/17 06:40 INR 1.24 (0.93-1.08) H 01/13/17 06:40 APTT 36.2 Seconds (23.7-30.8) H 01/11/17 21:20 <Arlette Pina - Last Filed: 01/14/17 17:43> Objective - Vital Signs/Intake and Output Vital Signs (last 24 hours): Temp Pulse Resp BP Pulse Ox 98.6 F 77 20 111/78 98 01/14/17 16:00 01/14/17 16:00 01/14/17 16:00 01/14/17 16:00 01/14/17 16:00 Intake and Output: 01/14/17 01/14/17 06:59 18:59 Intake Total 240 0 Output Total 875 Balance -635 0 - Medications Medications: Current Medications Sodium Chloride (Sodium Chloride 0.9%) 1,000 mls @ 100 mls/hr IV .Q10H JOSS Last Admin: 01/13/17 21:28 Dose: 100 mls/hr Ceftriaxone Sodium (Rocephin 1 Gram Ivpb) 1 gm in 100 mls @ 100 mls/hr IVPB DAILY JOSS PRN Reason: Protocol Last Admin: 01/14/17 12:15 Dose: Not Given Ondansetron HCl (Zofran Inj) 4 mg IVP Q6H JOSS Last Admin: 01/14/17 10:50 Dose: Not Given Pantoprazole Sodium (Protonix Inj) 40 mg IVP Q12 JOSS Last Admin: 01/14/17 09:23 Dose: 40 mg Propranolol HCl (Inderal) 10 mg PO BID JOSS Last Admin: 01/14/17 09:24 Dose: 10 mg - Labs Labs: 01/14/17 06:20 01/14/17 06:30 PT 13.4 Seconds (9.9-11.8) H 01/13/17 06:40 INR 1.24 (0.93-1.08) H 01/13/17 06:40 APTT 36.2 Seconds (23.7-30.8) H 01/11/17 21:20 Attending/Attestation - Attestation I have personally seen and examined this patient.: Yes I have fully participated in the care of the patient.: Yes I have reviewed all pertinent clinical information, including history, physical exam and plan: Yes Notes (Text): I have seen and examined the patient at bedside. Agree with the above note with the following additions/ exceptions: Briefly this is 71 year old male with history of PUD, alcohol induced cirrhosis and esophageal varices who was admitted for hematemesis. He underwent EGD s/p banding of multiple varices. Will keep patient NPO today. Continue protonix. 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 Transaminitis most likely due to alcohol abuse. GI on board. Upon discharge patient will follow up with Dr Mariela Gaffney. Dr Arlette Pina
[2017-01-14 06:47] LABS: HEMATOCRIT 28.7 % (42.0-52.0); MEAN CELL VOLUME 89.4 fl (80.0-105.0); MEAN CORPUSCULAR HEMOGLOBIN 30.5 pg (25.0-35.0); MEAN CORPUSCULAR HGB CONC 34.1 g/dl (31.0-37.0); MEAN PLATELET VOLUME 9.1 fl (7.0-11.0); RED CELL DISTRIBUTION WIDTH 14.2 % (11.5-14.5)
[2017-01-14 08:03] LABS: ALB/GLOB RATIO 0.8 (1.1-1.8); ALKALINE PHOSPHATASE 158 U/L (38-126); ALT/SGPT 63 U/L (7-56); AST/SGOT 92 U/L (17-59); BILIRUBIN,TOTAL 3.6 mg/dL (0.2-1.3); BLOOD UREA NITROGEN 11 mg/dL (7-21); CALCIUM 7.5 mg/dL (8.4-10.5); CARBON DIOXIDE 26 mmol/L (21-33); CHLORIDE 101 mmol/L (95-110); GFR AFRICAN-AMERICAN > 60; GLUCOSE,RANDOM 86 mg/dL (70-110); POTASSIUM 3.5 mmol/L (3.6-5.0); SODIUM 137 mmol/L (132-148); TOTAL PROTEIN 6.4 g/dL (5.8-8.3)
[2017-01-14 08:06] VITALS: RESP 20; O2SAT 98
[2017-01-14 08:45] LABS: MAGNESIUM 1.7 mg/dL (1.7-2.2)
--- NOTE | 2017-01-14 09:06 | CP.PCM.PN ---
Subjective - Date & Time of Evaluation Date of Evaluation: 01/14/17 Time of Evaluation: 07:00 - Subjective Subjective: PGY4 GI Follow-up Pt seen and examined bedside No complaints, other than sight epigastric discomfort + Black BM x 2 yesterday Denies any hematemesis, nausea, or vomiting +flatus ROS: 10 point ROS conducted, neg other than above Objective - Vital Signs/Intake and Output Vital Signs (last 24 hours): Temp Pulse Resp BP Pulse Ox 99.2 F 76 20 115/66 98 01/14/17 08:06 01/14/17 08:06 01/14/17 08:06 01/14/17 08:06 01/14/17 08:06 Intake and Output: 01/14/17 01/14/17 06:59 18:59 Intake Total 240 Output Total 875 Balance -635 - Medications Medications: Current Medications Ceftriaxone Sodium (Rocephin 1 Gram Ivpb) 1 gm in 100 mls @ 100 mls/hr IVPB DAILY JOSS PRN Reason: Protocol Last Admin: 01/13/17 10:11 Dose: Not Given Sodium Chloride (Sodium Chloride 0.9%) 1,000 mls @ 100 mls/hr IV .Q10H JOSS Last Admin: 01/13/17 21:28 Dose: 100 mls/hr Potassium Chloride (Potassium Chloride 20 Meq/100 Ml) 20 meq in 100 mls @ 50 mls/hr IVPB STAT STA Stop: 01/14/17 10:15 Ondansetron HCl (Zofran Inj) 4 mg IVP Q6H JOSS Last Admin: 01/14/17 04:05 Dose: Not Given Pantoprazole Sodium (Protonix Inj) 40 mg IVP Q12 JOSS Last Admin: 01/13/17 21:24 Dose: 40 mg Propranolol HCl (Inderal) 10 mg PO BID JOSS Last Admin: 01/13/17 17:46 Dose: Not Given - Labs Labs: 01/14/17 06:20 01/14/17 06:30 PT 13.4 Seconds (9.9-11.8) H 01/13/17 06:40 INR 1.24 (0.93-1.08) H 01/13/17 06:40 APTT 36.2 Seconds (23.7-30.8) H 01/11/17 21:20 - Constitutional Appears: Well, No Acute Distress - Head Exam Head Exam: ATRAUMATIC, NORMOCEPHALIC - Eye Exam Eye Exam: Normal appearance - ENT Exam ENT Exam: Mucous Membranes Moist - Respiratory Exam Respiratory Exam: Clear to Ausculation Bilateral. absent: Prolonged Expiratory Phase, Rales, Rhonchi, Wheezes, Respiratory Distress - Cardiovascular Exam Cardiovascular Exam: REGULAR RHYTHM, +S1, +S2 - GI/Abdominal Exam GI & Abdominal Exam: Soft, Normal Bowel Sounds. absent: Guarding, Rigid, Tenderness, Diminished Bowel Sounds, Organomegaly - Extremities Exam Extremities Exam: absent: Joint Swelling, Pedal Edema - Neurological Exam Neurological Exam: Alert, Awake, Oriented x3 - Psychiatric Exam Psychiatric exam: Normal Affect, Normal Mood - Skin Skin Exam: Dry, Intact, Normal Color, Warm Assessment and Plan - Assessment and Plan (Free Text) Assessment: Ras Wahl is a 71M w/ hx of decompensated cirrhosis and varices who presented to the ED with reports of hematemesis x1 at home. Pt was found to have grade 3 esophageal varices on EGD s/p banding x4 1. Grade 3 Esophageal Varices s/p banding 2. Decompensated ETOH cirrhosis - admission MELD 15 3. Hematemesis, resolved 4. Prior history of PUD, esophageal varices Plan: -advance to liquid diet -continue PPI daily -continue propanolol PO as outpt -f/u w/ Dr. Key after discharge within 2-4 weeks -recommend alcohol cessation -will need to schedule a repeat EGD in 3-6 months -h/h stable -of able to tolerate diet may discharge from GI standpoint Will D/W Dr. Hollins
[2017-01-14] MEDS: cefTRIAXone 1 gm 1 GM/100 ML BAG IVPB SCH ×2 (09:24→10:51)
--- NOTE | 2017-01-14 10:18 | CP.PCM.PN ---
<Morgan Guajardo - Last Filed: 01/14/17 10:11> Subjective - Date & Time of Evaluation Date of Evaluation: 01/14/17 Time of Evaluation: 07:40 - Subjective Subjective: Subjective: Patient seen and examined at bedside. Resting comfortably in bed. No acute overnight events. Patient admits to nausea and his abdominal pain has resolved. Offers no new complaints at this time. Denies f/c/cp/sob/d/c/urinary sxs Physical Examination: - Head Exam Head Exam: ATRAUMATIC, NORMAL INSPECTION, NORMOCEPHALIC - Eye Exam Eye Exam: EOMI, Normal appearance Pupil Exam: NORMAL ACCOMODATION - ENT Exam ENT Exam: Mucous Membranes Moist, Normal Exam - Neck Exam Neck exam: Positive for: Normal Inspection - Respiratory Exam Respiratory Exam: Clear to Auscultation Bilateral, NORMAL BREATHING PATTERN. absent: Rhonchi, Wheezes - Cardiovascular Exam Cardiovascular Exam: REGULAR RHYTHM, +S1, +S2 - GI/Abdominal Exam GI & Abdominal Exam: Normal Bowel Sounds, Soft. absent: Distended, Firm, Tenderness - Extremities Exam Extremities exam: Positive for: normal inspection. Negative for: calf tenderness - Back Exam Back exam: NORMAL INSPECTION. absent: CVA tenderness (L) - Neurological Exam Neurological exam: Alert, CN II-XII Intact, Oriented x3 - Psychiatric Exam Psychiatric exam: Normal Affect, Normal Mood - Skin Skin Exam: Normal Color, Warm Assessment and Plan: Patient is a 71 year old male with a past medical history of PUD, ETOH induced cirrhosis, and esophageal varcies who was admitted for evaluation and treatment of bright red blood in the emesis. Hematemesis - due to esophageal varices - c/w propanolol and protonix - d/c ceftriaxone - GI c/s recommendations appreciated- underwent EGD with banding of multiple varices, advanced diet as tolerated, will need EGD, continue PPI daily,, continue propanolol PO as outpt,, f/u w/ Dr. Key after discharge within 2-4 weeks, will need to schedule a repeat EGD in 3-6 months ETOH Cirrhosis - ETOH abuse education provided- patient understands and appreciates continued cessation of ETOH use - Monitor LFTs Prophylaxis - Protonix - SCDs Patient case discussed with and plan approved by attending physician, Dr. Pina. Objective - Vital Signs/Intake and Output Vital Signs (last 24 hours): Temp Pulse Resp BP Pulse Ox 99.2 F 76 20 115/66 98 01/14/17 08:06 01/14/17 09:24 01/14/17 08:06 01/14/17 09:24 01/14/17 08:06 Intake and Output: 01/14/17 01/14/17 06:59 18:59 Intake Total 240 Output Total 875 Balance -635 - Medications Medications: Current Medications Ceftriaxone Sodium (Rocephin 1 Gram Ivpb) 1 gm in 100 mls @ 100 mls/hr IVPB DAILY [facility] PRN Reason: Protocol Last Admin: 01/14/17 09:24 Dose: 100 mls/hr Sodium Chloride (Sodium Chloride 0.9%) 1,000 mls @ 100 mls/hr IV .Q10H [facility] Last Admin: 01/13/17 21:28 Dose: 100 mls/hr Potassium Chloride (Potassium Chloride 20 Meq/100 Ml) 20 meq in 100 mls @ 50 mls/hr IVPB STAT STA Stop: 01/14/17 10:15 Last Admin: 01/14/17 09:24 Dose: 50 mls/hr Ondansetron HCl (Zofran Inj) 4 mg IVP Q6H [facility] Last Admin: 01/14/17 04:05 Dose: Not Given Pantoprazole Sodium (Protonix Inj) 40 mg IVP Q12 [facility] Last Admin: 01/14/17 09:23 Dose: 40 mg Propranolol HCl (Inderal) 10 mg PO BID [facility] Last Admin: 01/14/17 09:24 Dose: 10 mg - Labs Labs: 01/14/17 06:20 01/14/17 06:30 PT 13.4 Seconds (9.9-11.8) H 01/13/17 06:40 INR 1.24 (0.93-1.08) H 01/13/17 06:40 APTT 36.2 Seconds (23.7-30.8) H 01/11/17 21:20 <Arlette Pina - Last Filed: 01/14/17 17:50> Objective - Vital Signs/Intake and Output Vital Signs (last 24 hours): Temp Pulse Resp BP Pulse Ox 98.6 F 77 20 111/78 98 01/14/17 16:00 01/14/17 16:00 01/14/17 16:00 01/14/17 16:00 01/14/17 16:00 Intake and Output: 01/14/17 01/14/17 06:59 18:59 Intake Total 240 0 Output Total 875 Balance -635 0 - Medications Medications: Current Medications Sodium Chloride (Sodium Chloride 0.9%) 1,000 mls @ 100 mls/hr IV .Q10H [facility] Last Admin: 01/13/17 21:28 Dose: 100 mls/hr Ceftriaxone Sodium (Rocephin 1 Gram Ivpb) 1 gm in 100 mls @ 100 mls/hr IVPB DAILY [facility] PRN Reason: Protocol Last Admin: 01/14/17 12:15 Dose: Not Given Ondansetron HCl (Zofran Inj) 4 mg IVP Q6H [facility] Last Admin: 01/14/17 10:50 Dose: Not Given Pantoprazole Sodium (Protonix Inj) 40 mg IVP Q12 [facility] Last Admin: 01/14/17 09:23 Dose: 40 mg Propranolol HCl (Inderal) 10 mg PO BID [facility] Last Admin: 01/14/17 09:24 Dose: 10 mg - Labs Labs: 01/14/17 06:20 01/14/17 06:30 PT 13.4 Seconds (9.9-11.8) H 01/13/17 06:40 INR 1.24 (0.93-1.08) H 01/13/17 06:40 APTT 36.2 Seconds (23.7-30.8) H 01/11/17 21:20 Attending/Attestation - Attestation I have personally seen and examined this patient.: Yes I have fully participated in the care of the patient.: Yes I have reviewed all pertinent clinical information, including history, physical exam and plan: Yes Notes (Text): I have seen and examined the patient at bedside. Agree with the above note with the following additions/ exceptions: Briefly this is 71 year old male with history of PUD, alcohol induced cirrhosis and esophageal varices who was admitted for hematemesis. He underwent EGD s/p banding of multiple varices. He tolerated clears for breakfast. Continue protonix and propranolol. At this time , we will continue short term antibiotic prophylaxis as he has cirrhosis and GI hemorrhage. Will switch to PO cipro at the time of discharge to complete 7 day course. 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 Transaminitis most likely due to alcohol abuse. GI on board. Upon discharge patient will follow up with Dr Mariela Gaffney and Dr Key. He also need repeat EGD in 3-6 months. It was explained to the patient and his daughter. Dr Arlette Pina
[2017-01-14] MEDS ORDERED: cefTRIAXone 1 gm 1 GM/100 ML BAG IVPB SCH (12:00)
--- NOTE | 2017-01-14 12:53 | CP.PCM.PN ---
Subjective - Date & Time of Evaluation Date of Evaluation: 01/14/17 Time of Evaluation: 07:00 - Subjective Subjective: PGY4 GI Follow-up Pt seen and examined bedside Has slight discomfort in epigastric area Denies any abd pain tolerating liquid diet Denies any nausea or vomiting Denies any further episodes of hematemesis ROS: 10 point ROS conducted, neg other than above Objective - Vital Signs/Intake and Output Vital Signs (last 24 hours): Temp Pulse Resp BP Pulse Ox 99.2 F 76 20 115/66 98 01/14/17 08:06 01/14/17 09:24 01/14/17 08:06 01/14/17 09:24 01/14/17 08:06 Intake and Output: 01/14/17 01/14/17 06:59 18:59 Intake Total 240 Output Total 875 Balance -635 - Medications Medications: Current Medications Sodium Chloride (Sodium Chloride 0.9%) 1,000 mls @ 100 mls/hr IV .Q10H [facility] Last Admin: 01/13/17 21:28 Dose: 100 mls/hr Ceftriaxone Sodium (Rocephin 1 Gram Ivpb) 1 gm in 100 mls @ 100 mls/hr IVPB DAILY [facility] PRN Reason: Protocol Ondansetron HCl (Zofran Inj) 4 mg IVP Q6H [facility] Last Admin: 01/14/17 10:50 Dose: Not Given Pantoprazole Sodium (Protonix Inj) 40 mg IVP Q12 [facility] Last Admin: 01/14/17 09:23 Dose: 40 mg Propranolol HCl (Inderal) 10 mg PO BID [facility] Last Admin: 01/14/17 09:24 Dose: 10 mg - Labs Labs: 01/14/17 06:20 01/14/17 06:30 PT 13.4 Seconds (9.9-11.8) H 01/13/17 06:40 INR 1.24 (0.93-1.08) H 01/13/17 06:40 APTT 36.2 Seconds (23.7-30.8) H 01/11/17 21:20 - Constitutional Appears: Well, Non-toxic, No Acute Distress - Head Exam Head Exam: ATRAUMATIC, NORMOCEPHALIC - Eye Exam Eye Exam: Normal appearance Pupil Exam: NORMAL ACCOMODATION - ENT Exam ENT Exam: Mucous Membranes Moist - Respiratory Exam Respiratory Exam: Clear to Ausculation Bilateral, NORMAL BREATHING PATTERN. absent: Rales, Rhonchi, Wheezes, Respiratory Distress - Cardiovascular Exam Cardiovascular Exam: REGULAR RHYTHM, +S1, +S2 - GI/Abdominal Exam GI & Abdominal Exam: Soft, Normal Bowel Sounds. absent: Guarding, Rigid, Tenderness, Hypoactive Bowel Sounds, Organomegaly - Extremities Exam Extremities Exam: absent: Joint Swelling, Pedal Edema - Neurological Exam Neurological Exam: Alert, Awake, Oriented x3 - Psychiatric Exam Psychiatric exam: Normal Affect, Normal Mood - Skin Skin Exam: Dry, Intact, Normal Color, Warm Assessment and Plan - Assessment and Plan (Free Text) Assessment: Ras Wahl is a 71M w/ hx of ETOH cirrohsis, PUD who presents to ER for hematemesis. He was found to have Grade 3 varices s/p 4 esophageal banding. Grade 3 Esophageal Varices s/p 4 bands Decompensated ETOH cirrhosis Hematemesis Prior history of PUD, esophageal varices Plan: - H/H stable, vitals stable - Transition to H2 jaylan for now, daily - Anti-emetic therapy standing - Liver CT from August 2016 reviewed by me showing cirrhosis without focal liver lesion - advance diet as tolerated -continue abx, and finish 7 day course in total - continue propanolol - advise continued alcohol cessation -f/u W/ Dr. Key D/W Dr. Hollins
[2017-01-14 17:35] VITALS: TEMP 98.6
--- NOTE | 2017-01-15 07:27 | CP.PCM.DIS ---
Provider - Provider Date of Admission: 01/13/17 07:51 Attending physician: Arlette Pina MD Primary care physician: Gulshan Sierra MD Time Spent in preparation of Discharge (in minutes): 45 Diagnosis - Discharge Diagnosis (1) Hematemesis/vomiting blood Status: Acute Priority: High (2) GI bleed Status: Acute Priority: High (3) Varices of esophagus determined by endoscopy Status: Acute Priority: High Hospital Course - Lab Results Lab Results: Most Recent Lab Values WBC 4.0 10^3/ul (4.5-11.0) L 01/14/17 06:20 RBC 3.21 10^6/uL (3.5-6.1) L 01/14/17 06:20 Hgb 9.8 g/dL (14.0-18.0) L 01/14/17 06:20 Hct 28.7 % (42.0-52.0) L 01/14/17 06:20 MCV 89.4 fl (80.0-105.0) 01/14/17 06:20 MCH 30.5 pg (25.0-35.0) 01/14/17 06:20 MCHC 34.1 g/dl (31.0-37.0) 01/14/17 06:20 RDW 14.2 % (11.5-14.5) 01/14/17 06:20 Plt Count 58 10^3/uL (120.0-450.0) L 01/14/17 06:20 Manual Plt Count 55 K/mm3 (120-450) L* 01/12/17 10:17 MPV 9.1 fl (7.0-11.0) 01/14/17 06:20 Gran % 50.9 % (50.0-68.0) 01/12/17 07:00 Lymph % (Auto) 32.0 % (22.0-35.0) 01/12/17 07:00 [place] % (Auto) 16.3 % (1.0-6.0) H 01/12/17 07:00 Eos % (Auto) 0.0 % (1.5-5.0) L 01/12/17 07:00 Baso % (Auto) 0.8 % (0.0-3.0) 01/12/17 07:00 Gran # 1.85 (1.4-6.5) 01/12/17 07:00 Lymph # 1.2 (1.2-3.4) 01/12/17 07:00 [place] # 0.6 (0.1-0.6) 01/12/17 07:00 Eos # 0.0 (0.0-0.7) 01/12/17 07:00 Baso # 0.03 K/mm3 (0.0-2.0) 01/12/17 07:00 PT 13.4 Seconds (9.9-11.8) H 01/13/17 06:40 INR 1.24 (0.93-1.08) H 01/13/17 06:40 APTT 36.2 Seconds (23.7-30.8) H 01/11/17 21:20 Sodium 137 mmol/L (132-148) 01/14/17 06:30 Potassium 3.5 mmol/L (3.6-5.0) L 01/14/17 06:30 Chloride 101 mmol/L (95-110) 01/14/17 06:30 Carbon Dioxide 26 mmol/L (21-33) 01/14/17 06:30 Anion Gap 14 (10-20) 01/14/17 06:30 BUN 11 mg/dL (7-21) 01/14/17 06:30 Creatinine 0.5 mg/dL (0.8-1.5) L 01/14/17 06:30 Est GFR ( Amer) > 60 01/14/17 06:30 Est GFR (Non-Af Amer) > 60 01/14/17 06:30 Random Glucose 86 mg/dL (70-110) 01/14/17 06:30 Calcium 7.5 mg/dL (8.4-10.5) L 01/14/17 06:30 Phosphorus 2.6 mg/dL (2.5-4.5) 01/12/17 07:00 Magnesium 1.7 mg/dL (1.7-2.2) 01/14/17 06:30 Total Bilirubin 3.6 mg/dL (0.2-1.3) H 01/14/17 06:30 AST 92 U/L (17-59) H 01/14/17 06:30 ALT 63 U/L (7-56) H 01/14/17 06:30 Alkaline Phosphatase 158 U/L (38-126) H 01/14/17 06:30 Lactate Dehydrogenase 870 U/L (333-699) H 01/11/17 21:20 Total Creatine Kinase 128 U/L (35-230) 01/11/17 21:20 Troponin I < 0.01 ng/mL 01/11/17 21:20 Total Protein 6.4 g/dL (5.8-8.3) 01/14/17 06:30 Albumin 2.9 g/dL (3.0-4.8) L 01/14/17 06:30 Globulin 3.5 gm/dL 01/14/17 06:30 Albumin/Globulin Ratio 0.8 (1.1-1.8) L 01/14/17 06:30 Lipase 201 U/L (23-300) 01/11/17 21:20 Alcohol, Quantitative < 10 mg/dL (0-10) 01/11/17 21:20 Blood Type A POSITIVE 01/11/17 22:00 Antibody Screen Negative 01/11/17 22:00 BBK History Checked Patient has bt 01/11/17 22:00 - Hospital Course Hospital Course: Patient is a 71 year old male with a past medical history of PUD, ETOH induced cirrhosis, and esophageal varcies who was admitted for evaluation and treatment of bright red blood in the emesis. With the use of physical examinations, lab work, and imaging the patient was diagnosed with and treated for hematemsis secondary to grade 3 esophageal varices. During their hospital stay the patient was seen by gastroenterology and their recommendations were both appreciated and utilized in the care for this patient. During their hospital stay the patient underwent an endoscopy with placement of multiple bands. Patients xray and specialist notes were reviewed, appreciated, and utilized in the management of the patients clinical course. Patient was treated with protonixs, intravenous fluids, and other empiric/therapeutic medications. At this time the patient is medically stable for discharge. He tolerating his diet without nausea, vomitting, and abdominal pain. Additionally he has experienced a nonbloody bowel movement since having the endoscopy with bands completed. Patient understands and appreciates the discharge plan. Patient instructed to follow up with primary care physicians and referrals within three to five days from discharge. Furthermore, the patient is instructed to take medications as prescribed and to return to emergency room for evaluation of intractable headache, fever, chills, dizziness, chest pain, shortness of breath, abdominal pain, nausea, vomiting, diarrhea, constipation, and urinary symptoms. This is a brief summary of the patients hospital course. Please see patient chart for full details. Discharge Exam - Head Exam Head Exam: ATRAUMATIC, NORMOCEPHALIC - Additional Findings Additional findings: - Constitutional Appears: Well, No Acute Distress - Head Exam Head Exam: ATRAUMATIC, NORMOCEPHALIC - Eye Exam Eye Exam: Normal appearance - ENT Exam ENT Exam: Mucous Membranes Moist - Respiratory Exam Respiratory Exam: Clear to Ausculation Bilateral, NORMAL BREATHING PATTERN. absent: Rales, Rhonchi, Wheezes - Cardiovascular Exam Cardiovascular Exam: REGULAR RHYTHM, +S1, +S2 - GI/Abdominal Exam GI & Abdominal Exam: Soft, Normal Bowel Sounds. absent: Tenderness, Diminished Bowel Sounds, Hypoactive Bowel Sounds, Organomegaly - Extremities Exam Extremities Exam: absent: Joint Swelling, Pedal Edema - Neurological Exam Neurological Exam: Alert, Awake, Oriented x3 - Psychiatric Exam Psychiatric exam: Normal Affect, Normal Mood - Skin Skin Exam: Dry, Intact, Normal Color, Warm Discharge Plan - Follow Up Plan Condition: STABLE Disposition: HOME/ ROUTINE Patient education suggested?: Yes Additional Instructions: Patient Instructions: Take medications as prescribed. Follow up with PMD and referrals within three to five days from discharge. Return to emergency room for evaluation of intractable headache, fever, chills, dizziness, chest pain, shortness of breath, abdominal pain, nausea, vomiting, diarrhea, constipation, and urinary symptoms. Referrals: Gulshan Sierra MD [Primary Care Provider] - Yesi REBOLLAR,MD Preethi [Medical Doctor] -
[2017-01-15 08:04] LABS: BASO # 0.05 K/mm3 (0.0-2.0); BASO % 1.1 % (0.0-3.0); EOS # 0.1 (0.0-0.7); EOS % 1.1 % (1.5-5.0); GRAN # 1.62 (1.4-6.5); LYMPH # 2.2 (1.2-3.4); LYMPH % 47.6 % (22.0-35.0); MEAN CELL VOLUME 90.1 fl (80.0-105.0); MEAN CORPUSCULAR HEMOGLOBIN 30.7 pg (25.0-35.0); MEAN CORPUSCULAR HGB CONC 34.1 g/dl (31.0-37.0); MEAN PLATELET VOLUME 9.5 fl (7.0-11.0); MONO # 0.7 (0.1-0.6); MONO % 15.2 % (1.0-6.0); RED CELL DISTRIBUTION WIDTH 14.2 % (11.5-14.5); WHITE BLOOD COUNT 4.6 10^3/ul (4.5-11.0)
[2017-01-15 08:13] LABS: ALB/GLOB RATIO 0.8 (1.1-1.8); ALKALINE PHOSPHATASE 168 U/L (38-126); ALT/SGPT 52 U/L (7-56); AST/SGOT 100 U/L (17-59); BILIRUBIN,TOTAL 2.4 mg/dL (0.2-1.3); BLOOD UREA NITROGEN 8 mg/dL (7-21); CALCIUM 7.8 mg/dL (8.4-10.5); CARBON DIOXIDE 29 mmol/L (21-33); CHLORIDE 101 mmol/L (98-107); GFR AFRICAN-AMERICAN > 60; GLUCOSE,RANDOM 141 mg/dL (70-110); POTASSIUM 3.5 mmol/L (3.6-5.0); SODIUM 139 mmol/L (132-148); TOTAL PROTEIN 6.8 g/dL (5.8-8.3)
--- NOTE | 2017-01-15 09:12 | CP.PCM.PN ---
<Memo Guajardo - Last Filed: 01/15/17 09:14> Subjective - Date & Time of Evaluation Date of Evaluation: 01/15/17 Time of Evaluation: 07:00 - Subjective Subjective: PGY4 GI Follow-up Pt seen and examined bedside Denies any abd pain tolerating regular diet Denies any nausea or vomiting Denies any further episodes of hematemesis ROS: 10 point ROS conducted, neg other than above Objective - Vital Signs/Intake and Output Vital Signs (last 24 hours): Temp Pulse Resp BP Pulse Ox 98.6 F 77 20 111/78 98 01/14/17 16:00 01/14/17 16:00 01/14/17 16:00 01/14/17 17:47 01/14/17 16:00 Intake and Output: 01/15/17 01/15/17 06:59 18:59 Intake Total 720 Output Total 750 Balance -30 - Medications Medications: Current Medications Sodium Chloride (Sodium Chloride 0.9%) 1,000 mls @ 100 mls/hr IV .Q10H [facility] Last Admin: 01/13/17 21:28 Dose: 100 mls/hr Ceftriaxone Sodium (Rocephin 1 Gram Ivpb) 1 gm in 100 mls @ 100 mls/hr IVPB DAILY [facility] PRN Reason: Protocol Ondansetron HCl (Zofran Inj) 4 mg IVP Q6H [facility] Pantoprazole Sodium (Protonix Inj) 40 mg IVP Q12 [facility] Propranolol HCl (Inderal) 10 mg PO BID [facility] - Labs Labs: 01/15/17 07:40 01/15/17 07:40 PT 13.4 Seconds (9.9-11.8) H 01/13/17 06:40 INR 1.24 (0.93-1.08) H 01/13/17 06:40 APTT 36.2 Seconds (23.7-30.8) H 01/11/17 21:20 - Constitutional Appears: Well, No Acute Distress - Head Exam Head Exam: ATRAUMATIC, NORMOCEPHALIC - Eye Exam Eye Exam: Normal appearance - ENT Exam ENT Exam: Mucous Membranes Moist - Respiratory Exam Respiratory Exam: Clear to Ausculation Bilateral, NORMAL BREATHING PATTERN. absent: Rales, Rhonchi, Wheezes - Cardiovascular Exam Cardiovascular Exam: REGULAR RHYTHM, +S1, +S2 - GI/Abdominal Exam GI & Abdominal Exam: Soft, Normal Bowel Sounds. absent: Tenderness, Diminished Bowel Sounds, Hypoactive Bowel Sounds, Organomegaly - Extremities Exam Extremities Exam: absent: Joint Swelling, Pedal Edema - Neurological Exam Neurological Exam: Alert, Awake, Oriented x3 - Psychiatric Exam Psychiatric exam: Normal Affect, Normal Mood - Skin Skin Exam: Dry, Intact, Normal Color, Warm Assessment and Plan - Assessment and Plan (Free Text) Assessment: Ras Wahl is a 71M w/ hx of ETOH cirrohsis, PUD who presents to ER for hematemesis. He was found to have Grade 3 varices s/p 4 esophageal banding. Grade 3 Esophageal Varices s/p 4 bands Decompensated ETOH cirrhosis Hematemesis Prior history of PUD, esophageal varices Plan: - H/H stable, vitals stable - Liver CT from August 2016 reviewed by me showing cirrhosis without focal liver lesion - tolerating regular diet - continue abx, and finish 7 day course in total, Levaquin as outpt - continue propanolol - advise continued alcohol cessation - will initiate referral for transplant at [facility] D/W Dr. Key <[facility]LLAR,[facility] - Last Filed: 01/15/17 09:34> Objective - Vital Signs/Intake and Output Vital Signs (last 24 hours): Temp Pulse Resp BP Pulse Ox 98.6 F 80 20 116/79 98 01/14/17 16:00 01/15/17 09:22 01/14/17 16:00 01/15/17 09:22 01/14/17 16:00 Intake and Output: 01/15/17 01/15/17 06:59 18:59 Intake Total 720 Output Total 750 Balance -30 - Medications Medications: Current Medications Sodium Chloride (Sodium Chloride 0.9%) 1,000 mls @ 100 mls/hr IV .Q10H [facility] Last Admin: 01/13/17 21:28 Dose: 100 mls/hr Ceftriaxone Sodium (Rocephin 1 Gram Ivpb) 1 gm in 100 mls @ 100 mls/hr IVPB DAILY [facility] PRN Reason: Protocol Last Admin: 01/15/17 09:24 Dose: 100 mls/hr Ondansetron HCl (Zofran Inj) 4 mg IVP Q6H [facility] Last Admin: 01/15/17 09:23 Dose: 4 mg Pantoprazole Sodium (Protonix Inj) 40 mg IVP Q12 [facility] Last Admin: 01/15/17 09:24 Dose: 40 mg Propranolol HCl (Inderal) 10 mg PO BID [facility] Last Admin: 01/15/17 09:22 Dose: 10 mg - Labs Labs: 01/15/17 07:40 01/15/17 07:40 PT 13.4 Seconds (9.9-11.8) H 01/13/17 06:40 INR 1.24 (0.93-1.08) H 01/13/17 06:40 APTT 36.2 Seconds (23.7-30.8) H 01/11/17 21:20 Attending/Attestation - Attestation I have personally seen and examined this patient.: Yes I have fully participated in the care of the patient.: Yes I have reviewed all pertinent clinical information, including history, physical exam and plan: Yes Notes (Text): 01/15/17 09:28 Patient seen and examined with GI fellow on rounds this am. This is a 71 yr old M w/ hx of ETOH cirrohsis, PUD who presents to ER for one episode of hematemesis. He was found to have Grade 3 varices s/p 4 esophageal banding. H/ Hct stable and tolerating solid food today. Can be discharged with 7 days antibiotics in total po and low dose diuretics. Patient was given [facility] liver transplant referral but has not followed on his appointment yet. Will follow with me in 4 weeks at the office. 6 month sobreity achieved
[2017-01-15 09:27] VITALS: BP 116/79; PULSE 80
[2017-01-15] MEDS ORDERED: cefTRIAXone 1 gm 1 GM/100 ML BAG IVPB SCH (10:00)
== END 2017-01-15 16:57 | disposition home or self-care (01) | DRG 432 ==
LOC: ED 20:49 → ERH 23:08 → 3RNO 01-12 01:25 → OBSVTOIN 01-13 07:51 → 3RNO 01-14 13:52 → UNDODISIN 01-14 21:00
PROVIDERS: ADMIT Internal Medicine; ATTEND Hospitalist
PROC: 06L38CZ Occlusion of Esophageal Vein with Extraluminal Device, Via Natural or Artificial Opening Endoscopic (ICD-10-PCS; principal; 2017-01-13 09:30)
DX: K70.30 Alcoholic cirrhosis of liver without ascites (principal); I85.11 Secondary esophageal varices with bleeding; D61.818 Other pancytopenia; K76.6 Portal hypertension; K31.89 Other diseases of stomach and duodenum; F10.10 Alcohol abuse, uncomplicated; Y90.0 Blood alcohol level of less than 20 mg/100 ml; Z87.11 Personal history of peptic ulcer disease

== ENCOUNTER 2017-03-26 12:55 | Day surgery (SDC) | payer MEDICARE, MEDICAID ==
[2017-03-12 13:10] VITALS: BMI 24.6
[2017-03-26 13:25] VITALS: RESP 15; TEMP 98.2
[2017-03-26] MEDS ORDERED: Lidocaine 1% Inj (20ml) ONE ×2 (14:20→14:28)
[2017-03-26] MEDS ORDERED: Propofol 10 mg/ml Inj (20 ML) ONE ×2 (14:20→14:30)
[2017-03-26] MEDS ORDERED: Sodium Chloride 0.9% 1,000 ML IV SCH (14:45)
[2017-03-26 16:33] VITALS: BP 110/75; PULSE 67; O2SAT 99
== END 2017-03-26 15:45 | disposition home or self-care (01) ==
LOC: ENDO 12:55
PROVIDERS: ATTEND Internal Medicine Gastroenterology
DX: K70.30 Alcoholic cirrhosis of liver without ascites (principal); I85.10 Secondary esophageal varices without bleeding; K76.6 Portal hypertension; K31.89 Other diseases of stomach and duodenum
CPT/HCPCS: 43235; J2704; J7040 ×2